=== PATIENT | male | born 1985 | race Caucasian/White ===

== ENCOUNTER 2016-11-07 22:58 | Inpatient (IN) | payer MEDICAID, SELFPAY ==
[~2016-11-07] VITALS: Ht 185.4 cm; Wt 76.3 kg
[2016-11-07] MEDS ORDERED: HALO5AMP3 IM (23:38)
[2016-11-07] MEDS ORDERED: LORA-446 PO (23:39)
[2016-11-07] MEDS ORDERED: PROP10TA PO (23:39)
[2016-11-07 23:43] LABS: HEMATOCRIT 45.2 % (39.2-51.8); HEMOGLOBIN 15.3 g/dL (13.7-18.0); WHITE BLOOD COUNT 6.6 x10^3/uL (3.4-10)
[2016-11-07 23:54] LABS: ASPARTATE AMINO TRANSFERASE 11 U/L (15-37); BLOOD UREA NITROGEN 7 mg/dL (7-18)
[2016-11-07 23:56] LABS: VALPROIC ACID 6.5 mcg/mL (50.0-100.0)
[2016-11-08 00:01] LABS: DAU SCREEN DISCLAIMER
[2016-11-08] MEDS ORDERED: NS + 20MEQ KCL 1,000 ML IV SCH ×2 (02:24→13:30)
[2016-11-08 02:30] VITALS: BP 111/67
[2016-11-08] MEDS ORDERED: ACETAMINOPHEN 325 MG TABLET PO PRN (02:30)
[2016-11-08] MEDS ORDERED: LORazepam 2 MG/ML, 1ML IVPush PRN (02:30)
[2016-11-08] MEDS ORDERED: VALPROATE SODIUM 500 MG in SODIUM CHLORIDE 0.9% 100 ML IV ONE (02:30)
[2016-11-08] MEDS ORDERED: ONDANSETRON 2MG/ML, 2ML IVPush PRN (02:30)
[2016-11-08 02:40] VITALS: BP 111/67
[2016-11-08] MEDS: ENOXAPARIN 40 MG/0.4 ML SQ SCH (05:16)
[2016-11-08 07:40] VITALS: BP 120/77
[2016-11-08] MEDS: LORazepam 1MG TABLET PO SCH (08:24)
[2016-11-08] MEDS: PROPRANOLOL 10 MG TABLET PO SCH (08:24)
[2016-11-08] MEDS ORDERED: DIVALPROEX 500 MG TAB.ER.24H PO SCH (09:00)
[2016-11-08] MEDS ORDERED: DIVA500T4 PO (10:48)
[2016-11-08] MEDS: NICOTINE 7 MG/24 HR PATCH.TD24 TD SCH (13:30)
[2016-11-08 14:18] VITALS: BP 122/83
[2016-11-08 20:31] VITALS: BP 106/57
[2016-11-08] MEDS ORDERED: DIVALPROEX 500 MG TAB.ER.24H PO ONE (21:00)
[2016-11-09 01:00] VITALS: BP 114/71
[2016-11-09 05:34] LABS: HEMATOCRIT 44.4 % (39.2-51.8); HEMOGLOBIN 15.1 g/dL (13.7-18.0); WHITE BLOOD COUNT 5.7 x10^3/uL (3.4-10)
[2016-11-09] MEDS: ENOXAPARIN 40 MG/0.4 ML SQ SCH (05:49)
[2016-11-09 06:17] LABS: BLOOD UREA NITROGEN 4 mg/dL (7-18); VALPROIC ACID 43.9 mcg/mL (50.0-100.0)
[2016-11-09 07:19] VITALS: BP 102/66
[2016-11-09] MEDS: LORazepam 1MG TABLET PO SCH (08:30)
[2016-11-09] MEDS: PROPRANOLOL 10 MG TABLET PO SCH (08:30)
[2016-11-09] MEDS: NICOTINE 7 MG/24 HR PATCH.TD24 TD SCH (12:30)
[2016-11-09] MEDS ORDERED: DIVALPROEX 500 MG TAB.ER.24H PO SCH (21:00)
== END 2016-11-09 13:20 | disposition home or self-care (01) | DRG 100 ==
LOC: ED 23:00 → EDIP 11-08 01:34 → 4WST 11-08 02:40
DX: G40.409 Other generalized epilepsy and epileptic syndromes, not intractable, without status epilepticus (principal); E43 Unspecified severe protein-calorie malnutrition; D75.89 Other specified diseases of blood and blood-forming organs; Z68.22 Body mass index [BMI] 22.0-22.9, adult; F17.200 Nicotine dependence, unspecified, uncomplicated; F20.9 Schizophrenia, unspecified; F41.9 Anxiety disorder, unspecified; Z79.899 Other long term (current) drug therapy; Z91.14 Patient's other noncompliance with medication regimen
CPT/HCPCS: 36415; 70450; 80048; 80053; 80164; 80307; 82607; 82746; 84443; 85025; 93005; J1650; J3480

== ENCOUNTER 2016-11-10 14:32 | Emergency (ER) | payer MEDICAID ==
[~2016-11-10] VITALS: Ht 180.3 cm; Wt 74.0 kg
[~2016-11-10 14:32] MED LIST: DIVA500T4 PO; HALO5AMP3 IM; LORA-446 PO; PROP10TA PO
[2016-11-10] MEDS ORDERED: SODIUM CHLORIDE FLUSH 10ML SYR IVF ONE (15:00)
[2016-11-10] MEDS ORDERED: LORazepam 2 MG/ML, 1ML IVPush ONE (15:00)
[2016-11-10 15:02] LABS: HEMATOCRIT 49.4 % (39.2-51.8); WHITE BLOOD COUNT 6.6 x10^3/uL (3.4-10)
[2016-11-10] MEDS ORDERED: LORazepam 2 MG/ML, 1ML ONE (15:03)
[2016-11-10 15:12] LABS: ASPARTATE AMINO TRANSFERASE 14 U/L (15-37); BLOOD UREA NITROGEN 6 mg/dL (7-18)
[2016-11-10 15:18] LABS: VALPROIC ACID 113.2 mcg/mL (50.0-100.0)
[2016-11-10 15:56] LABS: DAU SCREEN DISCLAIMER
[2016-11-10 17:10] VITALS: BP 124/76
== END 2016-11-10 17:46 | disposition home or self-care (01) ==
LOC: ED 14:59
DX: G40.909 Epilepsy, unspecified, not intractable, without status epilepticus (principal); F20.9 Schizophrenia, unspecified; Z79.899 Other long term (current) drug therapy
CPT/HCPCS: 36415; 80053; 80164; 80307; 85025; 93005; 96374; 99285; J2060

== ENCOUNTER 2016-11-17 18:08 | Emergency (ER) | payer MEDICAID ==
[~2016-11-17] VITALS: Ht 185.4 cm; Wt 70.0 kg
[2016-11-17] MEDS ORDERED: PROP60CA8 PO (18:19)
[2016-11-17] MEDS ORDERED: BENZ2AMP4 PO (18:19)
[2016-11-17 18:45] VITALS: BP 118/74
== END 2016-11-17 18:47 | disposition home or self-care (01) ==
LOC: ED 18:34
DX: R25.8 Other abnormal involuntary movements (principal); T43.4X5A Adverse effect of butyrophenone and thiothixene neuroleptics, initial encounter; Y92.89 Other specified places as the place of occurrence of the external cause; F17.200 Nicotine dependence, unspecified, uncomplicated; F15.10 Other stimulant abuse, uncomplicated
CPT/HCPCS: 99283

== ENCOUNTER 2016-12-14 15:55 | Emergency (ER) | payer MEDICAID ==
[~2016-12-14] VITALS: Ht 185.4 cm; Wt 70.0 kg
[~2016-12-14 15:55] MED LIST changes: +BENZ2AMP4 PO; +PROP60CA8 PO
[2016-12-14 16:00] VITALS: BP 118/74
[2016-12-14 16:51] LABS: ASPARTATE AMINO TRANSFERASE 16 U/L (15-37); BLOOD UREA NITROGEN 6 mg/dL (7-18); HEMATOCRIT 48.2 % (39.2-51.8); HEMOGLOBIN 16.7 g/dL (13.7-18.0); WHITE BLOOD COUNT 8.7 x10^3/uL (3.4-10)
== END 2016-12-14 17:35 | disposition home or self-care (01) ==
LOC: ED 16:01
DX: G25.2 Other specified forms of tremor (principal); T42.6X5A Adverse effect of other antiepileptic and sedative-hypnotic drugs, initial encounter; G40.909 Epilepsy, unspecified, not intractable, without status epilepticus; F20.9 Schizophrenia, unspecified; Y92.89 Other specified places as the place of occurrence of the external cause
CPT/HCPCS: 36415; 80053; 85025; 99284

== ENCOUNTER 2016-12-16 21:59 | Observation (INO) | payer MEDICAID ==
[~2016-12-16] VITALS: Ht 190.5 cm; Wt 73.4 kg
[2016-12-16 22:41] LABS: DAU SCREEN DISCLAIMER
[2016-12-16 23:12] LABS: HEMATOCRIT 50.4 % (39.2-51.8); HEMOGLOBIN 17.2 g/dL (13.7-18.0); WHITE BLOOD COUNT 6.8 x10^3/uL (3.4-10)
[2016-12-16] MEDS ORDERED: LORA-445 PO (23:17)
[2016-12-16] MEDS ORDERED: PROP20TA PO (23:17)
[2016-12-16] MEDS ORDERED: BENZ1TAB61 PO (23:17)
[2016-12-16 23:23] LABS: ASPARTATE AMINO TRANSFERASE 17 U/L (15-37); BLOOD UREA NITROGEN 7 mg/dL (7-18)
[2016-12-16 23:26] LABS: ACETAMINOPHEN < 2 mcg/mL (10-30)
[2016-12-17] MEDS ORDERED: ACETAMINOPHEN 325 MG TABLET PO PRN (01:30)
[2016-12-17] MEDS ORDERED: HALOPERIDOL 5 MG TABLET PO PRN (01:30)
[2016-12-17 07:54] VITALS: BP 90/56
[2016-12-17] MEDS: NICOTINE 14MG/24 HR PATCH.TD24 TD SCH (12:35)
[2016-12-17] MEDS: LORazepam 0.5MG TABLET PO PRN (18:32)
[2016-12-17 19:50] VITALS: BP 119/80
[2016-12-17] MEDS ORDERED: DIPHENHYDRAMINE 50 MG CAPSULE ONE (20:04)
[2016-12-17] MEDS: DIPHENHYDRAMINE 25 MG CAPSULE PO PRN (20:14)
[2016-12-18 08:23] VITALS: BP 99/59
[2016-12-18] MEDS: NICOTINE 14MG/24 HR PATCH.TD24 TD SCH (11:58)
[2016-12-18] MEDS: DIPHENHYDRAMINE 25 MG CAPSULE PO PRN (16:16)
[2016-12-18 16:30] VITALS: BP 134/90
[2016-12-18 16:40] VITALS: BP 129/84
[2016-12-18 16:52] VITALS: BP 128/80
[2016-12-18] MEDS: LORazepam 0.5MG TABLET PO PRN (16:59)
[2016-12-18 19:18] VITALS: BP 99/61
[2016-12-18] MEDS: PROPRANOLOL 20 MG TABLET PO SCH (20:16)
[2016-12-18] MEDS: BENZTROPINE 1 MG TABLET PO SCH (20:16)
[2016-12-18] MEDS ORDERED: DIVALPROEX 500 MG TAB.ER.24H PO SCH (21:00)
[2016-12-19 08:00] VITALS: BP 94/59
[2016-12-19] MEDS: PROPRANOLOL 20 MG TABLET PO SCH (09:00)
[2016-12-19] MEDS: BENZTROPINE 1 MG TABLET PO SCH (09:59)
[2016-12-19] MEDS ORDERED: DIPHENHYDRAMINE 50 MG/ML, 1ML IM PRN (10:30)
[2016-12-19] MEDS: NICOTINE 14MG/24 HR PATCH.TD24 TD SCH (14:34)
== END 2016-12-19 16:20 | disposition home or self-care (01) ==
LOC: ED 22:45 → 3E 12-17 01:09
PROVIDERS: ADMIT Internal Medicine; ATTEND Internal Medicine
DX: R45.851 Suicidal ideations (principal); F25.9 Schizoaffective disorder, unspecified; G40.909 Epilepsy, unspecified, not intractable, without status epilepticus; F95.2 Tourette's disorder; F43.10 Post-traumatic stress disorder, unspecified; F15.10 Other stimulant abuse, uncomplicated
CPT/HCPCS: 36415; 80053; 80307; 80329; 81003; 85025; 99285; G0378; Q0163; G0479; G0480